=== PATIENT | male | born 1950 | race Caucasian/White ===

== ENCOUNTER → 2016-08-11 | Outpatient (CLI) | payer MEDICARE | END | disposition home or self-care (01) | LOC: PCVCCLINIC 15:50 | PROVIDERS: ATTEND Internal Medicine Cardiovascular Disease | DX: E78.5 Hyperlipidemia, unspecified (principal); I42.9 Cardiomyopathy, unspecified; I25.10 Atherosclerotic heart disease of native coronary artery without angina pectoris; I77.9 Disorder of arteries and arterioles, unspecified; I10 Essential (primary) hypertension; Z95.810 Presence of automatic (implantable) cardiac defibrillator; Z79.82 Long term (current) use of aspirin; Z79.899 Other long term (current) drug therapy | CPT/HCPCS: 80061; G0463 ==

== ENCOUNTER → 2017-05-26 | Outpatient (CLI) | payer MEDICARE | END | disposition home or self-care (01) | LOC: PCVCCLINIC 11:33 | DX: I25.810 Atherosclerosis of coronary artery bypass graft(s) without angina pectoris (principal); E78.5 Hyperlipidemia, unspecified; I10 Essential (primary) hypertension; I77.9 Disorder of arteries and arterioles, unspecified; I42.9 Cardiomyopathy, unspecified; Z82.49 Family history of ischemic heart disease and other diseases of the circulatory system; Z95.810 Presence of automatic (implantable) cardiac defibrillator; Z79.82 Long term (current) use of aspirin; Z79.899 Other long term (current) drug therapy | CPT/HCPCS: 80061; 93284; G0463 ==

== ENCOUNTER → 2018-03-21 | Outpatient (CLI) | payer MEDICARE | END | disposition home or self-care (01) | LOC: PCVCCLINIC 15:50 | PROVIDERS: ATTEND Internal Medicine Cardiovascular Disease | DX: I25.810 Atherosclerosis of coronary artery bypass graft(s) without angina pectoris (principal); I42.9 Cardiomyopathy, unspecified; E78.00 Pure hypercholesterolemia, unspecified; E78.5 Hyperlipidemia, unspecified; I10 Essential (primary) hypertension; Z95.0 Presence of cardiac pacemaker; Z72.89 Other problems related to lifestyle; Z79.82 Long term (current) use of aspirin; Z95.1 Presence of aortocoronary bypass graft | CPT/HCPCS: 93005; 93281; G0463 ==

== ENCOUNTER → 2018-10-03 | Outpatient (CLI) | payer MEDICARE ==
--- NOTE | 2018-10-03 17:26 | PCVCIMAG ---
APPROVED REPORT Study performed: 10/03/2018 13:36:24 EXAM: Comprehensive 2D, Doppler, and color-flow Echocardiogram Patient Location: Echo lab Room #: 2Status: routine BSA: 2.06 HR: 78 bpmBP: 116/72 mmHg Rhythm: Pacemaker Other Information Study Quality: Good Risk Factors: Cardiac Risk Factors: HTN Indications CAD Cardiomegaly Cardiomyopathy Hypertension/HDD [place] mid-basal inferolateral wall 2D Dimensions IVSd: 8.23 (7-11mm)LVOT Diam: 19.76 (18-24mm) LVDd: 69.16 mm PWd: 8.78 (7-11mm)Ascending Ao: 24.18 (22-36mm) LVDs: 62.46 (25-40mm) Left Atrium: 37.78 (27-40mm) Aortic Root: 25.98 mm LV Single Plane 4CH: 30.71 % LV Single Plane 2CH: 35.39 % Biplane EF: 32.8 % Volumes Left Atrial Volume (Systole) Single Plane 4CH: 102.88 mLSingle Plane 2CH: 77.34 mL Biplane LA Volume: 89.00 mLLA ESV Index: 43.00 mL/m2 Aortic Valve AoV Peak Kraig.: 1.98 m/s AO Peak Gr.: 16.28 mmHgLVOT Max P.39 mmHg AO Mean Gr.: 9.43 mmHgLVOT Mean P.12 mmHg AO V2 Mean: 1.45 m/sLVOT Max V: 0.75 m/s AO V2 VTI: 46.58 cmLVOT Mean V: 0.48 m/s ANKITA (VTI): 1.00 [id number] V1 VTI: 15.24 cm ANKITA Vmax: 1.17 cm2 SV (LVOT): 46.70 mL Mitral Valve E/A Ratio: 1.2 MV Decel. Time: 187.44 ms MV E Max Kragi.: 0.96 m/s MV A Kraig.: 0.82 m/s IVRT: 110.73 ms TDI E/Lateral E': 10.67E/Medial E': 16.00 Medial E' Kraig.: 0.06 m/s Lateral E' Kraig.: 0.09 m/s Pulmonary Valve PV Peak Kraig.: 1.04 m/sPV Peak Gr.: 4.35 mmHg Pulmonary Vein P Vein S: 0.51 m/sP Vein A: 0.41 m/s P Vein D: 0.59 m/sP Vein A Dur.: 152.2 msec P Vein S/D Ratio: 0.86 Tricuspid Valve TR Peak Kraig.: 2.36 m/s TR Peak Gr.: 22.32 mmHg TV Vmax: 0.57 m/sPA Pressure: 29.00 mmHg Left Ventricle Left ventricle is severely dilated. There is normal LV segmental wall motion. There is normal left ventricular wall thickness. Left ventricular systolic function is moderate to severely decreased. LVEF is 30-35%. The left ventricular diastolic function is normal. Right Ventricle The right ventricle is normal size. The right ventricular systolic function is normal. Atria Left atrium is moderately dilated. The right atrium size is normal. Aortic Valve Aortic valve is trileaflet. Moderate aortic valve sclerosis. Aortic valve leaflets are sclerotic with decreased opening. No aortic regurgitation is present. Moderate aortic stenosis. Highest mean aortic valve gradient is 9.4_mmHg. Peak aortic valve gradient is 16 mmHg. Calculated ANKITA by the continuity equation is _1.2_cm2. Mitral Valve The mitral valve is normal in structure. There is no mitral valve regurgitation noted. No evidence of mitral valve stenosis. Tricuspid Valve The tricuspid valve is normal in structure. Trace to mild tricuspid regurgitation with a PA pressure of 29 mmHg. No apparent pulmonary hypertension. Pulmonic Valve The pulmonary valve is normal in structure. There is no pulmonic valvular regurgitation. Great Vessels The aortic root is normal in size. The ascending aorta is normal in size. IVC is normal in size and collapses >50% with inspiration. Pericardium There is no pericardial effusion. There is no pleural effusion. <Conclusion> Left ventricle is severely dilated. Left ventricular systolic function is moderate to severely decreased. LVEF is 30-35%. The right ventricle is normal size. Left atrium is moderately dilated. The right atrium size is normal. Aortic valve is trileaflet. Moderate aortic valve sclerosis. Aortic valve leaflets are sclerotic with decreased opening. Moderate aortic stenosis. Highest mean aortic valve gradient is 9.4_mmHg. Peak aortic valve gradient is 16 mmHg. Calculated ANKITA by the continuity equation is _1.2_cm2. There is no mitral valve regurgitation noted. Trace to mild tricuspid regurgitation with a PA pressure of 29 mmHg. No apparent pulmonary hypertension. The aortic root is normal in size. There is no pericardial effusion.
== END | disposition home or self-care (01) ==
LOC: PCVCIMAG 13:32
PROVIDERS: ATTEND Internal Medicine Cardiovascular Disease
DX: I07.1 Rheumatic tricuspid insufficiency (principal); I25.10 Atherosclerotic heart disease of native coronary artery without angina pectoris; R07.9 Chest pain, unspecified; R06.02 Shortness of breath; I42.9 Cardiomyopathy, unspecified; I50.22 Chronic systolic (congestive) heart failure; E78.00 Pure hypercholesterolemia, unspecified; I25.2 Old myocardial infarction; Z95.0 Presence of cardiac pacemaker; Z95.1 Presence of aortocoronary bypass graft; Z79.82 Long term (current) use of aspirin
CPT/HCPCS: 36415; 80061; 93281; 93306; G0463

== ENCOUNTER → 2019-01-04 | Outpatient (CLI) | payer MEDICARE ==
--- NOTE | 2019-01-04 14:41 | PCVCIMAG ---
APPROVED REPORT Study performed: 01/04/2019 10:30:33 Exam: Stress Echocardiogram Indication: CAD s/p CABG 1994,[place],complete heart block,ICD PM Patient Location: Echo lab Stress Nurse: Linh Mendoza RN Room #: 2 Status: routine Ht: 6 ft 0 in HR: 62 bpm BP: 138/100 mmHg Rhythm: Pacemaker Medical History Medical History: CAD s/p CABG,[place] Previous Cardiac Procedures: CABG, Pacemaker Pretest Chest Pain Characteristics: No chest pain Exercise History: Physically active Procedure The patient underwent an Exercise Stress Test using the Fabian Protocol. Blood pressure, heart rate, and EKG were monitored. An Echocardiogram was performed by hvac maintenance technician in four stages in quad fashion. At peak stress, four selected images were obtained and placed side by side with resting images for comparison. Stress Test Details Stress Test: Exercise stress testing was performed using a Fabian protocol. HR Resting HR: 62 bpmMax Heart Rate (APMHR): 152 bpm Max HR Achieved: 129 bpmTarget HR (85% APMHR): 129 bpm % of APMHR: 84 Recovery HR: 88 bpm HR response to stress: Rate was limited by Pacemaker BP Resting BP: 138/100 mmHg Max BP: 138/100 mmHg Recovery BP: 112/66 mmHg BP response to stress: Normal blood pressure response to stress. ECG Resting ECG: Paced Rhythm Stress ECG: Paced Rhythm with occ PVCs ST Change: Nondiagnostic V-pacing or LBBB Arrhythmia: Occ PVCs Recovery ECG: Paced Rhythm Recovery ST Change: Nondiagnostic V-pacing or LBBB Recovery Arrhythmia: rare Clinical Reason for Termination: Maximal effort Stress Symptoms: leg fatigue Exercise duration: 7 min 13 sec Highest Stage Achieved: Stage 3: 3.4 mph at 14% grade. Exercise capacity: 10.1 METs Overall Exercise Capacity for Age: Normal Angina Score: None No complications. Pre-Stress Echo The resting Echocardiogram showed abnormal left ventricular contractility with an estimated Ejection Fraction of about 30-35%. The resting Echocardiogram demonstrated wall motion abnormality in the mid distal inferoseptal and inferolateral [place] consistent with known old [place] . Post-Stress Echo The stress Echocardiogram showed abnormal left ventricular contractility with an estimated Ejection Fraction of about 35-40%. The stress Echocardiogram demonstrated wall motion abnormality in the above mentioned [place] with no new abnormalities . Conclusion Clinical Response: Non-ischemic Exercise Capacity: Average Stress ECG Response: Indeterminant Stress Echo Images: Non-ischemic Normal stress echocardiogram with submaximal exercise stress. <Conclusion> Normal stress echocardiogram with submaximal exercise stress.
== END | disposition home or self-care (01) ==
LOC: PCVCIMAG 10:19
PROVIDERS: ATTEND Internal Medicine Cardiovascular Disease
DX: I25.10 Atherosclerotic heart disease of native coronary artery without angina pectoris (principal); I42.9 Cardiomyopathy, unspecified; I50.22 Chronic systolic (congestive) heart failure
CPT/HCPCS: 93325; 93351